=== PATIENT | male | born 1955 | race Caucasian/White ===

== ENCOUNTER 2021-02-13 17:57 | Inpatient (IN) | payer MEDICARE ==
[~2021-02-13] VITALS: Ht 182.9 cm; Wt 57.6 kg
[2021-02-13 20:08] LABS: BASOPHIL 0.3 % (0-2); EOSINOPHIL 0.5 % (0-5); HCT 22.1 % (42.0-52.0); HGB 7.2 g/dl (13.2-18.0); LYMPHOCYTE 8.1 % (15-48); MCH 35.3 pg (25.0-31.0); MCHC 32.6 g/dL (32.0-36.0); MCV 108.3 fL (78.0-100.0); MONOCYTE 8.5 % (0-12); MPV 11.4 fL (6.0-9.5); NEUTROPHIL 75.4 % (41-80); NRBC 0.6; PLT 299 K/uL (150-400); RBC 2.04 M/uL (4.70-6.00); RDW 15.4 % (11.5-14.0)
[2021-02-13 20:16] LABS: INR 1.1 (0.9-1.2); PROTHROMBIN TIME 13.5 SECONDS (11.4-13.6); PTT 21.1 SECONDS (22.2-34.7)
[2021-02-13 20:28] LABS: LACTIC ACID 1.5 mmol/L (0.4-1.9)
[2021-02-13 20:33] LABS: ALBUMIN 1.9 g/dL (3.4-5.0); BILIRUBIN - TOTAL 0.7 mg/dL (0.2-1.0); BUN/CREAT RATIO (CALC) 21.6 RATIO; CREATININE 1.11 mg/dL (0.67-1.17); FT4 (FREE T4) 1.6 ng/dL (0.76-1.46); GLOBULIN (CALCULATION) 4.8 g/dL; POTASSIUM 2.8 mmol/L (3.5-5.1); TOTAL PROTEIN 6.7 g/dL (6.4-8.2)
--- NOTE | 2021-02-13 23:48 | NUR ---
PATIENT ARRIVED TO FLOOR FROM ER VIA STRETCHER. ALERT AND ORIENTED ABLE TO MAKE NEEDS KNOWN. BED IN LOW POSITION CALL LIGHT IN REACH. REFUSED TO REMOVE CLOTHES FOR FULL SKIN ASSESSMENT.
[2021-02-13] MEDS ORDERED: TOPROL XL 25MG25 MG PO (23:52)
[2021-02-13] MEDS ORDERED: INCRUSE ELLI62.5 MCG INH (23:54)
[2021-02-13] MEDS ORDERED: BREO ELLIPTA 11 EACH INH (23:54)
[2021-02-13] MEDS ORDERED: REMERON15 MG PO (23:55)
[2021-02-13] MEDS ORDERED: LEXAPRO 10MG TA10 MG PO (23:55)
[2021-02-13] MEDS ORDERED: IBUPROFEN800 MG PO (23:56)
[2021-02-14 01:08] LABS: BILIRUBIN 1+ mg/dL (NEGATIVE); BLOOD NEGATIVE Ery/uL (NEGATIVE); CLARITY CLEAR (CLEAR); COLOR YELLOW (YELLOW); GLUCOSE (U) NORMAL (NORMAL); LEUKOCYTES NEGATIVE Leu/uL (NEGATIVE); NITRITE NEGATIVE (NEGATIVE); PROTEIN 1+ mg/dL (NEGATIVE); pH 6.5 (5.0-9.0)
[2021-02-14 01:16] LABS: SQUAMOUS EPITHELIAL CELLS RARE
[2021-02-14 11:56] LABS: BASOPHIL 0.6 % (0-2); EOSINOPHIL 0.7 % (0-5); HCT 33.1 % (42.0-52.0); LYMPHOCYTE 5.4 % (15-48); MCH 33.6 pg (25.0-31.0); MCHC 33.2 g/dL (32.0-36.0); MCV 101.2 fL (78.0-100.0); MONOCYTE 4.8 % (0-12); MPV 10.5 fL (6.0-9.5); NEUTROPHIL 83.5 % (41-80); NRBC 0.7; PLT 200 K/uL (150-400); RBC 3.27 M/uL (4.70-6.00); RDW 19.7 % (11.5-14.0); WBC 9.7 K/uL (4.0-10.5)
[2021-02-14 12:14] LABS: ALBUMIN 1.6 g/dL (3.4-5.0); BILIRUBIN - TOTAL 1.2 mg/dL (0.2-1.0); BUN/CREAT RATIO (CALC) 21.2 RATIO; CREATININE 1.04 mg/dL (0.67-1.17); GLOBULIN (CALCULATION) 4.5 g/dL; MAGNESIUM 1.5 mg/dL (1.8-2.4); PHOSPHORUS 3.5 mg/dL (2.6-4.7); POTASSIUM 3.5 mmol/L (3.5-5.1); TOTAL PROTEIN 6.1 g/dL (6.4-8.2)
--- NOTE | 2021-02-14 15:12 | NUR ---
ORDER TO START HEPARIN DRIP AT 12UNITS/KG/HR IN. PT BACK FROM EGD. HEPARIN DRIP RESUMED AT 6.9 ML/HR OR 692 UNITS.
--- NOTE | 2021-02-14 19:34 | NUR ---
PATIENT HAS HX SLEEP APNEA, STATED SHOULD WEAR MACHINE BUT HAS BEEN UNABLE TO TOLERATE IN PAST. DOES NOT WEAR HOME O2. DOES HAVE RESCUE INHALER BUT RAN OUT PRIOR TO COMING TO HOSPITAL PATIENT HAD EGD TODAY, WAS ON RA PRIOR CAME BACK TO ROOM ON 3LNC PER RN AND CURRENTLY DECREASED TO 1LNC. CONTINUE TO WEAN AND MONITOR O2 TOLERATED.
[2021-02-15 05:05] LABS: BASOPHIL 0.4 % (0-2); EOSINOPHIL 1.4 % (0-5); HCT 29.2 % (42.0-52.0); HGB 9.5 g/dl (13.2-18.0); MCH 32.8 pg (25.0-31.0); MCHC 32.5 g/dL (32.0-36.0); MCV 100.7 fL (78.0-100.0); MONOCYTE 6.7 % (0-12); MPV 10.5 fL (6.0-9.5); NEUTROPHIL 76.4 % (41-80); NRBC 0.5; PLT 158 K/uL (150-400); RDW 21.1 % (11.5-14.0); RETICULOCYTE COUNT 3.6 % (1.0-2.0); WBC 9.2 K/uL (4.0-10.5)
[2021-02-15 05:51] LABS: ALBUMIN 1.5 g/dL (3.4-5.0); BILIRUBIN - TOTAL 0.7 mg/dL (0.2-1.0); BUN/CREAT RATIO (CALC) 21.2 RATIO; CREATININE 0.85 mg/dL (0.67-1.17); GLOBULIN (CALCULATION) 3.8 g/dL; MAGNESIUM 1.3 mg/dL (1.8-2.4); POTASSIUM 2.7 mmol/L (3.5-5.1); TOTAL PROTEIN 5.3 g/dL (6.4-8.2)
[2021-02-15 07:43] LABS: IRON % SATURATION 16.3 %SAT (20-50)
--- NOTE | 2021-02-15 08:00 | NUR ---
PT CURRENT PTT AT 0800 IS 63.5. NO CHANGE ADDED TO CURRENT HEPARIN DRIP RATE OF 6.9 ML/HR OR 692 UNITS.
[2021-02-15 11:48] LABS: HCT 27.7 % (42.0-52.0); HGB 9.4 g/dL (13.2-18.0)
--- NOTE | 2021-02-15 12:36 | NUR ---
PT LIVES WITH SPOUSE; PLEASE ADVISE OF DISCHARGE NEEDS
--- NOTE | 2021-02-15 12:48 | NUR ---
PT PTT 67.1, NO CHANGE ADDED TO CURRENT HEPARIN DRIP RATE. DRIP IS STILL AT 6.9 ML/HR OR 692 UNITS.
--- NOTE | 2021-02-15 16:16 | NUR ---
02/15/21 Mr. Davis lives alone. He was indeoendent in the home and community prior to admission. Mr. Davis drives and is able to manage his household. No discharge needs are anticipated.
[2021-02-16 03:46] LABS: BASOPHIL 0.6 % (0-2); EOSINOPHIL 2.3 % (0-5); HCT 26.5 % (42.0-52.0); HGB 8.7 g/dl (13.2-18.0); LYMPHOCYTE 14.5 % (15-48); MCH 33.3 pg (25.0-31.0); MCHC 32.8 g/dL (32.0-36.0); MCV 101.5 fL (78.0-100.0); MONOCYTE 8.9 % (0-12); MPV 10.6 fL (6.0-9.5); NEUTROPHIL 68.9 % (41-80); NRBC 0.5; PLT 164 K/uL (150-400); RBC 2.61 M/uL (4.70-6.00); RDW 20.9 % (11.5-14.0); WBC 9.4 K/uL (4.0-10.5)
[2021-02-16 04:06] LABS: CREATININE 0.79 mg/dL (0.67-1.17); MAGNESIUM 2.2 mg/dL (1.8-2.4); POTASSIUM 3.2 mmol/L (3.5-5.1)
[2021-02-16 14:18] LABS: HCT 28.6 % (42.0-52.0); HGB 9.1 g/dL (13.2-18.0)
[2021-02-17 05:56] LABS: BASOPHIL 0.8 % (0-2); HCT 28.9 % (42.0-52.0); HGB 9.3 g/dl (13.2-18.0); LYMPHOCYTE 10.5 % (15-48); MCH 33.2 pg (25.0-31.0); MCHC 32.2 g/dL (32.0-36.0); MCV 103.2 fL (78.0-100.0); MONOCYTE 8.5 % (0-12); MPV 10.4 fL (6.0-9.5); NEUTROPHIL 71.5 % (41-80); NRBC 0.2; PLT 205 K/uL (150-400); RDW 20.6 % (11.5-14.0); WBC 11.7 K/uL (4.0-10.5)
[2021-02-17 06:15] LABS: ALBUMIN 1.5 g/dL (3.4-5.0); BILIRUBIN - TOTAL 0.6 mg/dL (0.2-1.0); BUN/CREAT RATIO (CALC) 18.1 RATIO; CREATININE 0.72 mg/dL (0.67-1.17); GLOBULIN (CALCULATION) 3.9 g/dL; PHOSPHORUS 1.5 mg/dL (2.6-4.7); TOTAL PROTEIN 5.4 g/dL (6.4-8.2)
[2021-02-17 06:17] LABS: MAGNESIUM 1.6 mg/dL (1.8-2.4)
[2021-02-17 06:19] LABS: POTASSIUM 5.1 mmol/L (3.5-5.1)
--- NOTE | 2021-02-17 14:28 | NUR ---
-PER MD ORDERS - DR STORM- PT TRANSFERRED TO M/S RM: 209 @ 1405 VIA WHEELCHAIR; NO ISSUES; PT STABLE; ALL BELONGINGS TAKEN W/ PT TO NEW ROOM; REPORT GIVEN TO RECEIVING NURSE PRIOR TO TRANSFER - GIULIANO CHEN
[2021-02-18] MEDS ORDERED: ELIQUIS5 MG PO (09:55)
[2021-02-18] MEDS ORDERED: FOLIC ACID1 MG PO (09:55)
[2021-02-18] MEDS ORDERED: VITAMIN B-1100 M1 PO (09:55)
[2021-02-18] MEDS ORDERED: TAB-A-VITE TA400 MC1 PO (09:55)
[2021-02-18] MEDS ORDERED: MEGACE40 MG PO (09:56)
[2021-02-18] MEDS ORDERED: NORCO 5-325 TA1 EACH PO (09:57)
--- NOTE | 2021-02-18 12:27 | NUR ---
02/18/21 A referral was made to [facility] for a rw. - Dietary requested a social work consult r/t possible home delivered meals. - Mr. Davis reports the issue to be a lack of appetite. Discussion took place re: methods of cooking healthy meals on his hot plate, microwave, and toaster oven. He was educated to [facility]. Recommendations were for him to further discuss his loss of appetite with his PCP. - Report given to MS GIULIANO Coyne.
== END 2021-02-18 13:44 | disposition home or self-care (01) | DRG 441 ==
LOC: FER 17:57 → FTCU 22:30 → FMS 02-17 10:46 → FTCU 02-17 10:46 → FMS 02-18 13:44 → EDBD 02-18 13:44
PROVIDERS: Emergency Medicine Emergency Medical Services; Internal Medicine; Nurse Practitioner; Student in an Organized Health Care Education/Training Program; ADMIT Hospitalist
PROC: 0DJ08ZZ Inspection of Upper Intestinal Tract, Via Natural or Artificial Opening Endoscopic (ICD-10-PCS; 2021-02-14)
PROC: 30233N1 Transfusion of Nonautologous Red Blood Cells into Peripheral Vein, Percutaneous Approach (ICD-10-PCS; principal; 2021-02-14 12:00)
DX: I81 Portal vein thrombosis (principal); K85.20 Alcohol induced acute pancreatitis without necrosis or infection; R18.8 Other ascites; I82.890 Acute embolism and thrombosis of other specified veins; K86.0 Alcohol-induced chronic pancreatitis; R17 Unspecified jaundice; K86.3 Pseudocyst of pancreas; Z20.822 Contact with and (suspected) exposure to COVID-19; E87.8 Other disorders of electrolyte and fluid balance, not elsewhere classified; R29.6 Repeated falls; K29.80 Duodenitis without bleeding; K52.9 Noninfective gastroenteritis and colitis, unspecified; K76.0 Fatty (change of) liver, not elsewhere classified; K31.9 Disease of stomach and duodenum, unspecified; J44.9 Chronic obstructive pulmonary disease, unspecified; I10 Essential (primary) hypertension; F10.20 Alcohol dependence, uncomplicated; F17.210 Nicotine dependence, cigarettes, uncomplicated; J45.909 Unspecified asthma, uncomplicated; Z82.49 Family history of ischemic heart disease and other diseases of the circulatory system; Z81.8 Family history of other mental and behavioral disorders; Z80.3 Family history of malignant neoplasm of breast; Z80.8 Family history of malignant neoplasm of other organs or systems; D64.9 Anemia, unspecified; R53.1 Weakness; Z79.899 Other long term (current) drug therapy; R11.2 Nausea with vomiting, unspecified; E88.09 Other disorders of plasma-protein metabolism, not elsewhere classified; D52.9 Folate deficiency anemia, unspecified; E83.42 Hypomagnesemia; D53.9 Nutritional anemia, unspecified
CPT/HCPCS: 36415; 36430; 70450; 71045; 71250; 80048; 80053; 80061; 81001; 82150; 82607; 82746; 83540; 83550; 83605; 83690; 83735; 84100; 84132; 84439; 84443; 84484; 85014; 85018; 85025; 85610; 85730; 86850; 86900; 86901; 86922; 87040; 93005; 94010; 94640; 94762; 97110; 97116; 97162; 97166; 97530-GP; 97535; C9113; J0171; J1644; J2270; J2405; J2704; J3475; J7030; J7120; P9016; Q9967; U0002

== ENCOUNTER 2021-04-18 17:00 | Inpatient (IN) | payer MEDICARE, OTHER ==
[~2021-04-18] VITALS: Ht 182.9 cm; Wt 48.5 kg
[~2021-04-18 17:00] MED LIST: BREO ELLIPTA 11 EACH INH; ELIQUIS5 MG PO; FOLIC ACID1 MG PO; IBUPROFEN800 MG PO; INCRUSE ELLI62.5 MCG INH; LEXAPRO 10MG TA10 MG PO; MEGACE40 MG PO; NORCO 5-325 TA1 EACH PO; REMERON15 MG PO; TAB-A-VITE TA400 MC1 PO; TOPROL XL 25MG25 MG PO; VITAMIN B-1100 M1 PO
[2021-04-18 18:04] LABS: BASOPHIL 0.4 % (0-2); EOSINOPHIL 1.3 % (0-5); HCT 22.8 % (42.0-52.0); HGB 7.7 g/dl (13.2-18.0); LYMPHOCYTE 20.3 % (15-48); MCH 30.7 pg (25.0-31.0); MCHC 33.8 g/dL (32.0-36.0); MCV 90.8 fL (78.0-100.0); MPV 9.6 fL (6.0-9.5); NEUTROPHIL 66.5 % (41-80); NRBC 1.2; PLT 305 K/uL (150-400); RBC 2.51 M/uL (4.70-6.00); WBC 8.5 K/uL (4.0-10.5)
[2021-04-18 18:13] LABS: INR 1.1 (0.9-1.2); PROTHROMBIN TIME 13.5 SECONDS (11.4-13.6)
[2021-04-18 18:14] LABS: PTT 31.8 SECONDS (22.2-34.7)
[2021-04-18 18:26] LABS: LACTIC ACID 1.4 mmol/L (0.4-1.9)
[2021-04-18 18:30] LABS: ALBUMIN 1.8 g/dL (3.4-5.0); BILIRUBIN - TOTAL 0.6 mg/dL (0.2-1.0); BUN/CREAT RATIO (CALC) 27.1 RATIO; CREATININE 0.59 mg/dL (0.67-1.17); GLOBULIN (CALCULATION) 4.1 g/dL; POTASSIUM 3.1 mmol/L (3.5-5.1); TOTAL PROTEIN 5.9 g/dL (6.4-8.2)
[2021-04-18 18:47] LABS: IRON % SATURATION 45.5 %SAT (20-50)
[2021-04-18 19:02] LABS: FOLIC ACID (SERUM) 6.9 ng/mL (8.6-58.9)
[2021-04-18 19:58] LABS: BILIRUBIN 2+ mg/dL (NEGATIVE); BLOOD 3+ Ery/uL (NEGATIVE); CLARITY HAZY (CLEAR); COLOR YELLOW (YELLOW); GLUCOSE (U) NORMAL (NORMAL); LEUKOCYTES TRACE Leu/uL (NEGATIVE); NITRITE NEGATIVE (NEGATIVE); PROTEIN 2+ mg/dL (NEGATIVE)
[2021-04-18 20:04] LABS: BACTERIA TRACE; CALCIUM OXALATE CRYSTALS MODERATE; SQUAMOUS EPITHELIAL CELLS RARE; URINARY RBC 20-50; URINARY WBC RARE
[2021-04-18 20:34] LABS: CORONAVIRUS 2019 SARS-COV-2 NEGATIVE (NEGATIVE); INFLUENZA A NAA NEGATIVE (NEGATIVE)
[2021-04-18 23:52] LABS: MAGNESIUM 1.5 mg/dL (1.8-2.4); PHOSPHORUS 3.3 mg/dL (2.6-4.7)
[2021-04-19 00:30] LABS: VITAMIN D (25-OH) 75.1 ng/mL (30.0-100.0)
[2021-04-19 05:48] LABS: BASOPHIL 0.3 % (0-2); EOSINOPHIL 2.2 % (0-5); HCT 19.3 % (42.0-52.0); LYMPHOCYTE 22.3 % (15-48); MCHC 33.2 g/dL (32.0-36.0); MCV 90.6 fL (78.0-100.0); MPV 9.8 fL (6.0-9.5); NEUTROPHIL 62.5 % (41-80); NRBC 0.7; PLT 207 K/uL (150-400); RBC 2.13 M/uL (4.70-6.00); RDW 15.8 % (11.5-14.0); WBC 5.9 K/uL (4.0-10.5)
[2021-04-19 05:58] LABS: HGB 6.4 g/dl (13.2-18.0)
[2021-04-19 06:14] LABS: ALBUMIN 1.5 g/dL (3.4-5.0); ALKALINE PHOSHATASE 83 U/L (46-116); ALT <6 U/L (16-63); AST 16 U/L (15-37); BILIRUBIN - TOTAL 0.4 mg/dL (0.2-1.0); BUN 14 mg/dL (7-18); BUN/CREAT RATIO (CALC) 26.4 RATIO; CHLORIDE 102 mmol/L (98-107); CHOLESTEROL 129 mg/dL (<200); CO2 (BICARBONATE) 24 mmol/L (21-32); CREATININE 0.53 mg/dL (0.67-1.17); GLOBULIN (CALCULATION) 3.4 g/dL; GLUCOSE 82 mg/dL (74-106); HDL 20 mg/dL (40-60); LDL - DIRECT 87 mg/dL (<100); POTASSIUM 3.2 mmol/L (3.5-5.1); TOTAL PROTEIN 4.9 g/dL (6.4-8.2); TRIGLYCERIDES 99 mg/dL (<150)
--- NOTE | 2021-04-19 13:57 | NUR ---
PT. REQUESTED TO GO TO [facility]. PT. SIGNED CHOICE FORM.
[2021-04-20 05:45] LABS: BASOPHIL 0.2 % (0-2); EOSINOPHIL 1.1 % (0-5); HCT 31.9 % (42.0-52.0); LYMPHOCYTE 7.9 % (15-48); MCH 30.2 pg (25.0-31.0); MCHC 34.8 g/dL (32.0-36.0); MCV 86.7 fL (78.0-100.0); MONOCYTE 9.5 % (0-12); MPV 9.7 fL (6.0-9.5); NEUTROPHIL 80.5 % (41-80); NRBC 0.5; PLT 163 K/uL (150-400); RBC 3.68 M/uL (4.70-6.00); RDW 16.5 % (11.5-14.0)
[2021-04-20 06:03] LABS: ALBUMIN 1.5 g/dL (3.4-5.0); ALKALINE PHOSHATASE 100 U/L (46-116); ALT <6 U/L (16-63); AST 14 U/L (15-37); BILIRUBIN - TOTAL 0.7 mg/dL (0.2-1.0); BUN 10 mg/dL (7-18); CHLORIDE 104 mmol/L (98-107); CO2 (BICARBONATE) 22 mmol/L (21-32); GLOBULIN (CALCULATION) 3.4 g/dL; GLUCOSE 112 mg/dL (74-106); LIPASE 145 U/L (73-393); POTASSIUM 3.8 mmol/L (3.5-5.1); TOTAL PROTEIN 4.9 g/dL (6.4-8.2)
[2021-04-20 06:35] LABS: WBC 12.1 K/uL (4.0-10.5)
[2021-04-20 06:39] LABS: HGB 11.1 g/dl (13.2-18.0)
[2021-04-21 05:45] LABS: BASOPHIL 0.2 % (0-2); EOSINOPHIL 1.2 % (0-5); HCT 31.1 % (42.0-52.0); HGB 10.3 g/dl (13.2-18.0); LYMPHOCYTE 8.2 % (15-48); MCH 29.2 pg (25.0-31.0); MCHC 33.1 g/dL (32.0-36.0); MCV 88.1 fL (78.0-100.0); MONOCYTE 7.3 % (0-12); MPV 9.9 fL (6.0-9.5); NEUTROPHIL 82.2 % (41-80); NRBC 0.3; PLT 173 K/uL (150-400); RBC 3.53 M/uL (4.70-6.00); RDW 16.9 % (11.5-14.0); WBC 12.6 K/uL (4.0-10.5)
[2021-04-21 06:02] LABS: ALBUMIN 1.4 g/dL (3.4-5.0); ALKALINE PHOSHATASE 99 U/L (46-116); ALT <6 U/L (16-63); AST 12 U/L (15-37); BILIRUBIN - TOTAL 0.6 mg/dL (0.2-1.0); BUN 14 mg/dL (7-18); BUN/CREAT RATIO (CALC) 27.5 RATIO; CHLORIDE 105 mmol/L (98-107); CO2 (BICARBONATE) 26 mmol/L (21-32); CREATININE 0.51 mg/dL (0.67-1.17); GLOBULIN (CALCULATION) 3.2 g/dL; GLUCOSE 95 mg/dL (74-106); TOTAL PROTEIN 4.6 g/dL (6.4-8.2)
[2021-04-21 16:26] LABS: BILIRUBIN NEGATIVE (NEGATIVE); BLOOD 2+ Ery/uL (NEGATIVE); CLARITY CLEAR (CLEAR); COLOR YELLOW (YELLOW); GLUCOSE (U) NORMAL (NORMAL); LEUKOCYTES 3+ Leu/uL (NEGATIVE); NITRITE POSITIVE (NEGATIVE); PROTEIN TRACE (LOW) mg/dL (NEGATIVE); SPECIFIC GRAVITY 1.015 (1.001-1.030); UROBILINOGEN 0.2 mg/dL (0.2-1.0); pH 7.5 (5.0-9.0)
[2021-04-21 16:32] LABS: BACTERIA 3+; URINARY WBC TNTC
--- NOTE | 2021-04-22 11:34 | NUR ---
MIMI SUAREZ ADVISED THAT PT. IS APPROVED FOR ADMISSION BY HIS INSURANCE. DR. STORM ADVISED THAT PT. WILL NEED SOME TESTS THIS DATE AND HE SHOULD BE ABLE TO D/C ON 04/23/21. ADVISED DR. STORM AND GIULIANO MORRISON THAT PT. HAS BEEN APPROVED FOR [facility] AND WILL NEED A NEW COVID TEST.
--- NOTE | 2021-04-22 13:55 | NUR ---
RD visited with patient to discuss and verify wt history. Patient reports he has lost alot of wt. stated "i dont eat". patient's appearance exhibits signifcant additional wasting. 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
--- NOTE | 2021-04-22 14:06 | NUR ---
Pt remains NPO awaiting colonoscopy; will supplement diet as appropriate when p.o. resumed. continue to monitor
[2021-04-23 12:40] LABS: WBC (FLUID) 52 WBC/uL
[2021-04-23 12:43] LABS: COLOR (FLUID) STRAW
[2021-04-23 12:45] LABS: CLARITY (FLUID) SLIGHTLY HAZY
[2021-04-23 12:46] LABS: RBC (FLUID) 250 RBC/uL
--- NOTE | 2021-04-23 13:35 | NUR ---
ADVISED BY DR. STORM THAT PT HAS A UTI AND HE IS AWAITING CULTURE BEFORE DISHCARGE. ADVISED MIMI AT [facility] THAT PT. WILL NOT D/C TODAY.
[2021-04-24 05:51] LABS: BASOPHIL 0.2 % (0-2); EOSINOPHIL 0.7 % (0-5); HCT 27.9 % (42.0-52.0); HGB 9.5 g/dl (13.2-18.0); LYMPHOCYTE 10.5 % (15-48); MCH 29.1 pg (25.0-31.0); MCHC 34.1 g/dL (32.0-36.0); MCV 85.3 fL (78.0-100.0); MONOCYTE 10.3 % (0-12); MPV 9.8 fL (6.0-9.5); NEUTROPHIL 77.4 % (41-80); NRBC 0; PLT 170 K/uL (150-400); RBC 3.27 M/uL (4.70-6.00); RDW 17.4 % (11.5-14.0)
[2021-04-24 06:19] LABS: BUN/CREAT RATIO (CALC) 13.6 RATIO; CREATININE 0.59 mg/dL (0.67-1.17); POTASSIUM 2.6 mmol/L (3.5-5.1)
--- NOTE | 2021-04-24 10:32 | NUR ---
PT. WILL D/C TO [facility] THIS DATE PER DR. STORM. ADVISED NURSE, EMMY THAT PT. WILL D/C THIS DATE.
[2021-04-24] MEDS ORDERED: NORCO 5-325 TA1 EACH PO (10:33)
[2021-04-24] MEDS ORDERED: THERA TABLET400 MCG PO (10:34)
[2021-04-24] MEDS ORDERED: FOLIC ACID1 MG PO (10:34)
[2021-04-24] MEDS ORDERED: BUSPAR5 MG PO (10:38)
[2021-04-24] MEDS ORDERED: PROTONIX 40MG T40 MG PO (10:39)
[2021-04-24] MEDS ORDERED: PROVENTIL HFA6.7 GM INH (10:40)
[2021-04-24] MEDS ORDERED: ACETAMINOPHEN500 M1 PO (10:51)
== END 2021-04-24 15:47 | DRG 432 ==
LOC: FER 17:00 → FMS 22:05 → EDBD 22:05 → FMS 23:15
PROVIDERS: Allergy & Immunology Allergy; Emergency Medicine; Emergency Medicine Emergency Medical Services; Internal Medicine; Nurse Practitioner; Student in an Organized Health Care Education/Training Program; ADMIT Internal Medicine
PROC: 30233N1 Transfusion of Nonautologous Red Blood Cells into Peripheral Vein, Percutaneous Approach (ICD-10-PCS; 2021-04-19)
PROC: 0DB98ZX Excision of Duodenum, Via Natural or Artificial Opening Endoscopic, Diagnostic (ICD-10-PCS; principal; 2021-04-22 12:00)
PROC: 0DJD8ZZ Inspection of Lower Intestinal Tract, Via Natural or Artificial Opening Endoscopic (ICD-10-PCS; 2021-04-22 12:00)
PROC: 0W9G3ZX Drainage of Peritoneal Cavity, Percutaneous Approach, Diagnostic (ICD-10-PCS; 2021-04-23)
DX: K70.31 Alcoholic cirrhosis of liver with ascites (principal); E43 Unspecified severe protein-calorie malnutrition; I81 Portal vein thrombosis; K76.6 Portal hypertension; Z68.1 Body mass index [BMI] 19.9 or less, adult; K86.1 Other chronic pancreatitis; K86.3 Pseudocyst of pancreas; D62 Acute posthemorrhagic anemia; R64 Cachexia; K92.1 Melena; N39.0 Urinary tract infection, site not specified; Z20.822 Contact with and (suspected) exposure to COVID-19; I86.4 Gastric varices; Z66 Do not resuscitate; F32.9 Major depressive disorder, single episode, unspecified; J44.9 Chronic obstructive pulmonary disease, unspecified; I50.9 Heart failure, unspecified; K64.8 Other hemorrhoids; F10.11 Alcohol abuse, in remission; L89.152 Pressure ulcer of sacral region, stage 2; K31.7 Polyp of stomach and duodenum; R62.7 Adult failure to thrive; K44.9 Diaphragmatic hernia without obstruction or gangrene; Z96.651 Presence of right artificial knee joint; Z79.01 Long term (current) use of anticoagulants; Z79.899 Other long term (current) drug therapy; Z87.891 Personal history of nicotine dependence; Z88.0 Allergy status to penicillin; Z88.5 Allergy status to narcotic agent; Z98.890 Other specified postprocedural states; Z85.46 Personal history of malignant neoplasm of prostate; Z85.830 Personal history of malignant neoplasm of bone; I25.2 Old myocardial infarction
CPT/HCPCS: 36415; 36430; 70450; 71045; 74181; 76705; 80048; 80053; 80061; 81001; 82140; 82270; 82306; 82607; 82728; 82746; 83540; 83550; 83605; 83690; 83735; 83880; 84100; 84157; 84443; 84484; 85025; 85610; 85730; 86850; 86900; 86901; 86922; 87070; 87076; 87088; 87186; 88305; 89051; 93005; 94010; 94640; 94760; 94762; 97162; 97166; 97530; 97530-GP; 97535; C9113; G0480; J0696; J1170; J2250; J2405; J2704; J3475; J3480; J7030; J7050; J7120; P9016; P9046; P9047; Q9967; U0002

== ENCOUNTER 2021-05-28 12:19 | Emergency (ER) | payer MEDICARE ==
[~2021-05-28 12:19] MED LIST changes: +ACETAMINOPHEN500 M1 PO; +BUSPAR5 MG PO; +PROTONIX 40MG T40 MG PO; +PROVENTIL HFA6.7 GM INH; +THERA TABLET400 MCG PO
[2021-05-28 13:30] LABS: BASOPHIL 0.3 % (0-2); EOSINOPHIL 0.5 % (0-7); HCT 28.4 % (42.0-52.0); HGB 9.1 g/dl (13.2-18.0); LYMPHOCYTE 13.2 % (15-48); MCH 29.6 pg (25.0-31.0); MCV 92.5 fL (78.0-100.0); MONOCYTE 13.4 % (0-12); NEUTROPHIL 71.8 % (41-80); NRBC 0; PLT 301 K/uL (150-400); RBC 3.07 M/uL (4.70-6.00); RDW 17.9 % (11.5-14.0); WBC 7.7 K/uL (4.0-10.5)
[2021-05-28 13:37] LABS: BUN/CREAT RATIO (CALC) 17.6 RATIO; CREATININE 0.74 mg/dL (0.67-1.17)
[2021-05-28 15:39] LABS: BILIRUBIN 1+ mg/dL (NEGATIVE); BLOOD 3+ Ery/uL (NEGATIVE); CLARITY CLOUDY (CLEAR); COLOR YELLOW (YELLOW); GLUCOSE (U) NORMAL (NORMAL); LEUKOCYTES 3+ Leu/uL (NEGATIVE); NITRITE NEGATIVE (NEGATIVE); PROTEIN 3+ mg/dL (NEGATIVE); SPECIFIC GRAVITY 1.025 (1.001-1.030)
[2021-05-28 15:50] LABS: BACTERIA 4+; URINARY WBC TNTC
[2021-05-28 15:51] LABS: URINARY RBC 20-50
[2021-05-28] MEDS ORDERED: BACTRIM DS TAB1 EACH PO (16:59)
[2021-05-28] MEDS ORDERED: K-DUR20 MEQ PO (16:59)
== END 2021-05-28 17:54 | disposition home or self-care (01) ==
LOC: FER 12:19
PROVIDERS: Nurse Practitioner Family
DX: N39.0 Urinary tract infection, site not specified (principal); E87.6 Hypokalemia; J44.9 Chronic obstructive pulmonary disease, unspecified
CPT/HCPCS: 36415; 80048; 81001; 85025; 87076; 87088; 87186; 99285